=== PATIENT | female | born 1975 | race Caucasian/White ===

== ENCOUNTER → 2016-12-13 | Outpatient (REF) | payer OTHER | LOC: M LAB REF 15:45 | PROVIDERS: ATTEND Surgery | DX: D22.5 Melanocytic nevi of trunk (principal) ==

== ENCOUNTER → 2017-09-21 | Outpatient (CLI) | payer OTHER ==
[2017-09-21 08:18] LABS: HEMATOCRIT 37.7 % (36.0-47.0); HEMOGLOBIN 12.7 g/dl (12.0-16.0); MEAN CORPUSCULAR HEMOGLOBIN 32.1 pg (27.0-33.0); MEAN CORPUSCULAR HGB CONC 33.7 g/dl (32.0-36.5); MEAN CORPUSCULAR VOLUME 95.2 fl (80.0-96.0); PLATELET COUNT, AUTOMATED 165 10^3/uL (150-450); RED BLOOD COUNT 3.96 10^6/uL (4.00-5.40); RED CELL DISTRIBUTION WIDTH 11.6 % (11.5-14.5); WHITE BLOOD COUNT 3.8 10^3/uL (4.0-10.0)
[2017-09-21 09:14] LABS: ALBUMIN 3.8 GM/DL (3.2-5.2); ALBUMIN/GLOBULIN RATIO 1.15 (1.00-1.93); ALKALINE PHOSPHATASE 68 U/L (45-117); ALT/SGPT 24 U/L (12-78); ANION GAP 6 MEQ/L (8-16); AST/SGOT 13 U/L (7-37); BILIRUBIN,TOTAL 0.5 MG/DL (0.2-1.0); BLOOD UREA NITROGEN 17 MG/DL (7-18); CALCIUM LEVEL 8.8 MG/DL (8.5-10.1); CARBON DIOXIDE LEVEL 29 MEQ/L (21-32); CHLORIDE LEVEL 106 MEQ/L (98-107); CREATININE FOR GFR 0.72 MG/DL (0.55-1.30); GLOMERULAR FILTRATION RATE > 60.0 (>58); GLUCOSE, FASTING 97 MG/DL (70-100); HCG, SERUM QUANTITATIVE < 1.0 MIU/ML; POTASSIUM SERUM 4.3 MEQ/L (3.5-5.1); SODIUM LEVEL 141 MEQ/L (136-145); TOTAL PROTEIN 7.1 GM/DL (6.4-8.2)
[2017-09-21 12:22] LABS: PROGESTERONE 0.3 NG/ML; TESTOSTERONE 18 NG/DL (14-76)
[2017-09-21 12:23] LABS: ESTRADIOL 25.8 PG/ML; FOLLICLE STIMULATING HORMONE 10.2 mIU/mL; PROLACTIN 4.8 NG/ML
[2017-09-22 10:19] LABS: RUBELLA IgG QUALITATIVE IMMUNE (IMMUNE)
[2017-09-22 10:20] LABS: HEPATITIS B SURFACE ANTIGEN NEGATIVE (NEGATIVE)
[2017-09-22 10:48] LABS: HEPATITIS C VIRUS ABY INDEX < 0.0 INDEX (<0.8)
[2017-09-22 10:49] LABS: HIV 1&2 SCREEN CENTAUR NEGATIVE (NEGATIVE)
== END ==
LOC: M LAB 07:26
DX: E28.9 Ovarian dysfunction, unspecified (principal)
CPT/HCPCS: 83001

== ENCOUNTER → 2018-11-09 | Outpatient (CLI) | payer OTHER ==
[2018-11-09 07:37] LABS: THYROID STIMULATING HORMONE 0.049 uIU/ML (0.358-3.740)
[2018-11-09 09:40] LABS: ESTRADIOL 107.4 PG/ML; PROGESTERONE 27.16 NG/ML
== END ==
LOC: M LAB 06:45
PROVIDERS: ATTEND Obstetrics & Gynecology Reproductive Endocrinology
DX: E28.9 Ovarian dysfunction, unspecified (principal)

== ENCOUNTER → 2019-03-28 | Outpatient (CLI) | payer OTHER ==
[2019-03-28 12:21] LABS: ESTRADIOL 185.8 PG/ML; PROGESTERONE 15.55 NG/ML
[2019-03-28 13:14] LABS: THYROID STIMULATING HORMONE 1.67 uIU/ML (0.358-3.740)
== END ==
LOC: M LAB 06:36
PROVIDERS: ATTEND Obstetrics & Gynecology Reproductive Endocrinology
DX: E28.9 Ovarian dysfunction, unspecified (principal)

== ENCOUNTER → 2019-04-04 | Outpatient (CLI) | payer OTHER ==
[2019-04-04 12:17] LABS: PROGESTERONE 38.48 NG/ML
== END ==
LOC: M LAB 06:34
PROVIDERS: ATTEND Obstetrics & Gynecology Reproductive Endocrinology
DX: E28.9 Ovarian dysfunction, unspecified (principal)

== ENCOUNTER 2019-04-22 12:08 | Emergency (ER) | payer OTHER ==
[~2019-04-22] VITALS: Ht 167.6 cm; Wt 65.2 kg
[2019-04-22] MEDS ORDERED: CQ 10 PO (12:37)
[2019-04-22] MEDS ORDERED: PRENTAB9 PO (12:37)
[2019-04-22 12:49] LABS: BASO % 0.4 % (0.0-1.0); EOS # 0.4 10^3/uL (0.0-0.5); EOS % 4.6 % (0.0-3.0); HEMATOCRIT 36.4 % (36.0-47.0); HEMOGLOBIN 12.3 g/dl (12.0-15.5); MEAN CORPUSCULAR HEMOGLOBIN 32.5 pg (27.0-33.0); MEAN CORPUSCULAR HGB CONC 33.8 g/dl (32.0-36.5); MEAN CORPUSCULAR VOLUME 96.3 fl (80.0-96.0); MONO # 0.6 10^3/uL (0.0-0.8); MONO % 6.2 % (0.0-5.0); NEUTROPHILS # 6.4 10^3/uL (1.5-8.5); NEUTROPHILS % 67.4 % (36.0-66.0); PLATELET COUNT, AUTOMATED 162 10^3/uL (150-450); RED BLOOD COUNT 3.78 10^6/uL (4.00-5.40); WHITE BLOOD COUNT 9.5 10^3/uL (4.0-10.0)
[2019-04-22 13:34] LABS: BLOOD UREA NITROGEN 11 MG/DL (7-18); CALCIUM LEVEL 9.2 MG/DL (8.5-10.1); CARBON DIOXIDE LEVEL 27 MEQ/L (21-32); CHLORIDE LEVEL 104 MEQ/L (98-107); CREATININE FOR GFR 0.79 MG/DL (0.55-1.30); GLOMERULAR FILTRATION RATE > 60.0 (>58); GLUCOSE, FASTING 111 MG/DL (70-100); HCG, SERUM QUANTITATIVE 3901 MIU/ML; POTASSIUM SERUM 3.4 MEQ/L (3.5-5.1); SODIUM LEVEL 138 MEQ/L (136-145)
[2019-04-22] MEDS ORDERED: PERCOCET 5MG/325MG TAB PO ONE (14:00)
[2019-04-22] MEDS ORDERED: NORC1TAB7 PO (15:37)
[2019-04-22 15:44] VITALS: BP 132/74
--- NOTE | 2019-04-23 07:42 | REP ---
FIRST TRIMESTER ULTRASOUND: Real-time sonographic evaluation of the pelvis is performed utilizing transabdominal and endovaginal technique. The uterus measures 11.2 x 4.0 x 5.2 cm. The endometrial thickness is 7 mm. In the region of the cervix, there is an oval irregular sac-like structure, which measures 49 x 12 x 15 mm. This could represent an irregular gestational sac. No internal contents are seen. Given its location and appearance, this may represent an in progress. Right ovary measures 2.4 x 1.2 x 1.6 cm and left ovary 2.6 x 1.9 x 1.9 cm. A complex cystic structure in the left ovary may represent a corpus luteum 1.7 x 1.1 x 1.6 cm. There is no evidence of ovarian torsion or free fluid. No adnexal mass is seen. IMPRESSION: Irregular sac-like structure in the cervix may represent an in progress. No viable gestation is seen. Complex cystic structure left ovary 1.7 cm may represent a corpus luteum. No torsion or free fluid or adnexal mass. Electronically Signed by Narciso Roth MD 04/24/2019 10:10 A
== END 2019-04-22 15:50 | disposition home or self-care (01) ==
LOC: M ED 12:08
DX: O03.4 Incomplete spontaneous abortion without complication (principal); Z3A.01 Less than 8 weeks gestation of pregnancy

== ENCOUNTER → 2019-10-09 | Outpatient (REF) | payer OTHER ==
[~2019-10-09] MED LIST: CQ 10 PO; NORC1TAB7 PO; PRENTAB9 PO
[2019-10-09 17:12] LABS: BASO # 0.1 10^3/uL (0.0-0.2); EOS % 0.5 % (0.0-3.0); HEMATOCRIT 30.5 % (36.0-47.0); HEMOGLOBIN 9.4 g/dl (12.0-15.5); LYMPH % 25.9 % (24.0-44.0); MEAN CORPUSCULAR HEMOGLOBIN 30.9 pg (27.0-33.0); MEAN CORPUSCULAR HGB CONC 30.8 g/dl (32.0-36.5); MEAN CORPUSCULAR VOLUME 100.3 fl (80.0-96.0); MONO # 0.7 10^3/uL (0.0-0.8); MONO % 8.8 % (0.0-5.0); NEUTROPHILS # 4.7 10^3/uL (1.5-8.5); PLATELET COUNT, AUTOMATED 734 10^3/uL (150-450); RED BLOOD COUNT 3.04 10^6/uL (4.00-5.40); WHITE BLOOD COUNT 7.7 10^3/uL (4.0-10.0)
== END ==
LOC: M SHH 16:33
PROVIDERS: ATTEND Internal Medicine
DX: J86.9 Pyothorax without fistula (principal)

== ENCOUNTER → 2019-10-14 | Outpatient (REF) | payer OTHER ==
[2019-10-14 11:54] LABS: BASO # 0.1 10^3/uL (0.0-0.2); BASO % 1.3 % (0.0-1.0); EOS # 0.1 10^3/uL (0.0-0.5); EOS % 1.3 % (0.0-3.0); HEMATOCRIT 34.4 % (36.0-47.0); LYMPH % 33.1 % (24.0-44.0); MEAN CORPUSCULAR HEMOGLOBIN 31.3 pg (27.0-33.0); MONO # 0.5 10^3/uL (0.0-0.8); MONO % 8.1 % (0.0-5.0); NEUTROPHILS # 3.3 10^3/uL (1.5-8.5); NEUTROPHILS % 55.2 % (36.0-66.0); PLATELET COUNT, AUTOMATED 503 10^3/uL (150-450); RED BLOOD COUNT 3.51 10^6/uL (4.00-5.40)
[2019-10-14 12:41] LABS: ALBUMIN 2.6 GM/DL (3.2-5.2); ALT/SGPT 33 U/L (12-78); BILIRUBIN,TOTAL 0.5 MG/DL (0.2-1.0); BLOOD UREA NITROGEN 18 MG/DL (7-18); CALCIUM LEVEL 9.8 MG/DL (8.5-10.1); CARBON DIOXIDE LEVEL 29 MEQ/L (21-32); CHLORIDE LEVEL 101 MEQ/L (98-107); CREATININE FOR GFR 0.88 MG/DL (0.55-1.30); GLOMERULAR FILTRATION RATE > 60.0 (>58); GLUCOSE, FASTING 95 MG/DL (70-100); POTASSIUM SERUM 5.2 MEQ/L (3.5-5.1); SODIUM LEVEL 135 MEQ/L (136-145); TOTAL PROTEIN 8.2 GM/DL (6.4-8.2)
== END ==
LOC: M SHH 11:26
PROVIDERS: ATTEND Internal Medicine
DX: J86.9 Pyothorax without fistula (principal)

== ENCOUNTER → 2019-10-21 | Outpatient (REF) | payer OTHER ==
[2019-10-21 17:01] LABS: BASO % 0.8 % (0.0-1.0); EOS # 0.1 10^3/uL (0.0-0.5); EOS % 2.6 % (0.0-3.0); HEMATOCRIT 33.5 % (36.0-47.0); HEMOGLOBIN 10.7 g/dl (12.0-15.5); LYMPH # 1.7 10^3/uL (1.5-5.0); LYMPH % 34.4 % (24.0-44.0); MEAN CORPUSCULAR HEMOGLOBIN 31.5 pg (27.0-33.0); MEAN CORPUSCULAR HGB CONC 31.9 g/dl (32.0-36.5); MEAN CORPUSCULAR VOLUME 98.5 fl (80.0-96.0); MONO # 0.6 10^3/uL (0.0-0.8); NEUTROPHILS # 2.5 10^3/uL (1.5-8.5); NEUTROPHILS % 50.6 % (36.0-66.0); PLATELET COUNT, AUTOMATED 224 10^3/uL (150-450)
[2019-10-21 17:13] LABS: ALBUMIN 2.9 GM/DL (3.2-5.2); ALT/SGPT 33 U/L (12-78); BILIRUBIN,TOTAL 0.3 MG/DL (0.2-1.0); BLOOD UREA NITROGEN 12 MG/DL (7-18); CALCIUM LEVEL 8.8 MG/DL (8.5-10.1); CARBON DIOXIDE LEVEL 26 MEQ/L (21-32); CHLORIDE LEVEL 103 MEQ/L (98-107); CREATININE FOR GFR 0.76 MG/DL (0.55-1.30); GLOMERULAR FILTRATION RATE > 60.0 (>58); GLUCOSE, FASTING 120 MG/DL (70-100); SODIUM LEVEL 136 MEQ/L (136-145); TOTAL PROTEIN 7.5 GM/DL (6.4-8.2)
== END ==
LOC: M SHH 16:10
PROVIDERS: ATTEND Internal Medicine
DX: J86.9 Pyothorax without fistula (principal)

== ENCOUNTER → 2020-05-21 | Outpatient (CLI) | payer OTHER ==
[2020-05-21 13:32] LABS: PROGESTERONE 43.83 NG/ML
== END ==
LOC: M LAB 06:31
PROVIDERS: ATTEND Obstetrics & Gynecology Reproductive Endocrinology
DX: Z32.00 Encounter for pregnancy test, result unknown (principal)

== ENCOUNTER → 2020-06-19 | Outpatient (CLI) | payer OTHER ==
--- NOTE | 2020-06-19 13:29 | REP ---
INDICATION: W/ HISTORY OF INF. COMPARISON: None. TECHNIQUE: Transvaginal pelvic ultrasound performed. FINDINGS: There is a single living intrauterine gestation. The estimated gestational age is 8 weeks 1 day based on a crown-rump length of 17 mm. EDC 01/28/2021. heart rate 118 beats per minute. There is no subchorionic hemorrhage. IMPRESSION: Viable intrauterine gestation with estimated gestational age 8 weeks 1 day, EDC 01/28/2021. <Electronically signed by Narciso Roth > 06/19/20 [id number]
[2020-06-19 13:30] LABS: ESTRADIOL 591.1 PG/ML; PROGESTERONE 31.63 NG/ML
== END ==
LOC: M LAB 12:10
PROVIDERS: ATTEND Obstetrics & Gynecology Reproductive Endocrinology
DX: O09.01 Supervision of pregnancy with history of infertility, first trimester (principal); Z3A.08 8 weeks gestation of pregnancy

== ENCOUNTER → 2020-07-27 | Outpatient (REF) | payer OTHER ==
[2020-07-27 14:58] LABS: HEMOGLOBIN 13.2 g/dl (12.0-15.5); MEAN CORPUSCULAR HEMOGLOBIN 31.5 pg (27.0-33.0); MEAN CORPUSCULAR VOLUME 95.5 fl (80.0-96.0); PLATELET COUNT, AUTOMATED 182 10^3/uL (150-450); RED BLOOD COUNT 4.19 10^6/uL (4.00-5.40); WHITE BLOOD COUNT 4.9 10^3/uL (4.0-10.0)
[2020-07-27 16:14] LABS: HEPATITIS C VIRUS ABY INDEX 0.1 INDEX (<0.8); HIV 1&2 SCREEN CENTAUR NEGATIVE (NEGATIVE)
== END ==
LOC: M PLALAB 10:42
PROVIDERS: ATTEND Obstetrics & Gynecology
DX: O09.529 Supervision of elderly multigravida, unspecified trimester (principal); Z3A.00 Weeks of gestation of pregnancy not specified

== ENCOUNTER → 2020-09-11 | Outpatient (CLI) | payer BC ==
--- NOTE | 2020-09-11 13:12 | REP ---
INDICATION: ANATOMY. COMPARISON: None. TECHNIQUE: Transabdominal obstetric sonography. FINDINGS: Scanning through the gravid uterus demonstrates a viable single intrauterine gestation in cephalic lie. motion is observed and heart rate is recorded at 155 beats per minute. A posterior placenta is seen, grade 1, without evidence of placenta previa. The inferior placental tip is 2.0 cm from the internal cervical os measured on transabdominal images. Closed cervical length is measured at 3.4 cm transabdominally. No extrauterine abnormality is observed. Amniotic fluid is subjectively normal. No abnormality is observed. Four-chamber heart and left and right ventricular outflow tract views are less than optimally achieved today due to position. The following additional anatomic structures are identified today and felt to be unremarkable: cranium in and intracranial contents, nuchal fold face and profile nose and lips, diaphragm, left-sided stomach, abdominal wall cord insertion, right and left kidney, urinary bladder, spine, upper and lower extremities, three-vessel cord.. Biometry chart: BPD 4.3 cm 19 weeks 1 day Head circumference 16.6 cm 19 weeks 2 days Abdominal circumference 14.7 cm 20 weeks 0 days Femur length 3.2 cm 19 weeks 6 days Humeral length 3.3 cm 21 weeks 0 days HC AC ratio normal 1.13 Cephalic index normal 0.71 Estimated weight 315 g, 0 lb 11 oz, 28th percentile for 20 weeks 1 day IMPRESSION: Viable single intrauterine gestation at 20 weeks 1 days by today's composite sonographic criteria. HORACIO by today's sonography January 28, 2021. No complication identified. Four-chamber heart and outflow tract views less than optimally achieved due to position. Somewhat low-lying posterior placenta, 2.0 cm from the internal cervical os. <Electronically signed by Deacon King > 09/11/20 [id number]
== END ==
LOC: M WHC 09:54
PROVIDERS: ATTEND Obstetrics & Gynecology
DX: O34.211 Maternal care for low transverse scar from previous cesarean delivery (principal); Z3A.20 20 weeks gestation of pregnancy

== ENCOUNTER → 2020-10-07 | Outpatient (CLI) | payer BC ==
--- NOTE | 2020-10-07 09:59 | REP ---
INDICATION: F/U ANATOMY. Established HORACIO January 28, 2021. COMPARISON: Comparison sonography 11 September 2020.. TECHNIQUE: Transabdominal obstetric sonography. FINDINGS: Scanning through the gravid uterus demonstrates a viable single intrauterine gestation in transverse, head to the maternal left lie. motion is observed and heart rate is recorded at 152 beats per minute. A low posterior placenta is seen, grade 1, extending to a distance of 2.0 cm from the internal cervical os.. Closed cervical length is measured at 3.9 cm transabdominally. No extrauterine abnormality is observed. Amniotic fluid is subjectively normal. Four-chamber heart and left and right ventricular outflow tract views are again less than optimally a see due to position. The following anatomic structures are identified today again and felt to be unremarkable: cranium, cerebellum, face and profile nose and lips, diaphragm, left-sided stomach, abdominal wall cord insertion, right and left kidney, urinary bladder, three-vessel cord.. Biometry chart: BPD 5.5 cm, 22 weeks 6 days Head circumference 20.9 cm, 23 weeks 0 days Abdominal circumference 19.5 cm, 24 weeks 1 day Femur length 4.3 cm, 24 weeks 0 days Humeral length 4.1 cm, 24 weeks 4 days HC AC ratio normal 1.07 Cephalic index normal 0.72 Estimated weight 645 g, 1 lb 6 oz, 45th percentile for 23 weeks 6 days IMPRESSION: Viable single intrauterine gestation at 23 weeks 5 days by today's composite sonographic criteria. HORACIO by today's sonography January 29, 2021. No complication identified. Expected gestational age estimate based on prior sonography is 23 weeks 6 days, HORACIO January 28, 2021. heart is still less than optimally seen due to position. Low posterior placenta. <Electronically signed by Deacon King > 10/07/20 [id number]
== END ==
LOC: M WHC 07:05
PROVIDERS: ATTEND Obstetrics & Gynecology
DX: O34.211 Maternal care for low transverse scar from previous cesarean delivery (principal); O32.2XX0 Maternal care for transverse and oblique lie, not applicable or unspecified; Z3A.23 23 weeks gestation of pregnancy; O44.42 Low lying placenta NOS or without hemorrhage, second trimester

== ENCOUNTER → 2020-11-02 | Outpatient (REF) | payer BC ==
[2020-11-02 15:29] LABS: HEMATOCRIT 31.7 % (36.0-47.0); HEMOGLOBIN 10.6 g/dl (12.0-15.5); MEAN CORPUSCULAR HEMOGLOBIN 33.5 pg (27.0-33.0); MEAN CORPUSCULAR HGB CONC 33.4 g/dl (32.0-36.5); MEAN CORPUSCULAR VOLUME 100.3 fl (80.0-96.0); PLATELET COUNT, AUTOMATED 145 10^3/uL (150-450); RED BLOOD COUNT 3.16 10^6/uL (4.00-5.40)
== END ==
LOC: M PLALAB 12:05
PROVIDERS: ATTEND Obstetrics & Gynecology
DX: Z34.90 Encounter for supervision of normal pregnancy, unspecified, unspecified trimester (principal); Z3A.00 Weeks of gestation of pregnancy not specified

== ENCOUNTER → 2020-11-18 | Outpatient (CLI) | payer BC | LOC: M LAB 07:25 | PROVIDERS: ATTEND Obstetrics & Gynecology | DX: R73.02 Impaired glucose tolerance (oral) (principal) ==

== ENCOUNTER → 2020-12-22 | Outpatient (CLI) | payer BC ==
--- NOTE | 2020-12-22 08:49 | REP ---
INDICATION: GESTATIONAL DIABETES,GROWTH COMPARISON: 10/07/2020 TECHNIQUE: Transabdominal obstetrical ultrasound with color Doppler evaluation. FINDINGS: Examination demonstrates a single live intrauterine in cephalic presentation. motion is identified by technologist. Placenta is noted posterior and grade 2 without evidence for placenta previa or abruption. Amniotic fluid volume is normal. Cervix measures 3.1 cm in length and appears closed.. Gestational age by 1st U/S 34 weeks 5 days with HORACIO 01/28/2021. Gestational age by current measurements 34 weeks 3 days with HORACIO 01/30/2021. FHR equals 132 beats per minute. BPD: 8.3 cm at 33 weeks 2 days HC: 31.3 cm at 35 weeks 1 day AC: 31.1 cm at 35 weeks 0 days FL: 6.5 cm at 33 weeks 0 days HL: 6.1 cm at 35 weeks 4 days HC/AC: 1.01 Estimated weight 2426 grams (37thpercentile). IMPRESSION: Single live intrauterine in cephalic presentation demonstrating appropriate interval growth. <Electronically signed by Yovany Johnson > 12/22/20 [id number]
== END ==
LOC: M WHC 07:49
PROVIDERS: ATTEND Obstetrics & Gynecology
DX: Z36.89 Encounter for other specified antenatal screening (principal); O24.419 Gestational diabetes mellitus in pregnancy, unspecified control; Z3A.34 34 weeks gestation of pregnancy

== ENCOUNTER → 2020-12-30 | Outpatient (REF) | payer BC | LOC: M SFHCWAGY 16:44 | PROVIDERS: ATTEND Obstetrics & Gynecology | DX: Z36.89 Encounter for other specified antenatal screening (principal); Z3A.35 35 weeks gestation of pregnancy ==

== ENCOUNTER 2021-01-08 13:41 | Outpatient (CLI) | payer BC ==
[~2021-01-08] VITALS: Ht 167.6 cm; Wt 70.5 kg
[~2021-01-08 13:41] MED LIST changes: +IRON18TA PO; +METF500T13 PO
[2021-01-08 13:55] VITALS: BP 138/87
[2021-01-08 14:21] LABS: APPEARANCE, URINE CLEAR (CLEAR); BACTERIA, URINE AUTO 2+ (NEGATIVE); BILIRUBIN, URINE AUTO NEGATIVE (NEGATIVE); BLOOD, URINE BLOOD NEGATIVE (NEGATIVE); COLOR, URINE STRAW (YELLOW); GLUCOSE, URINE (UA) AUTO NEGATIVE (NEGATIVE); KETONE, URINE AUTO NEGATIVE (NEGATIVE); LEUKOCYTE ESTERASE, URINE AUTO NEGATIVE (NEGATIVE); NITRITE, URINE AUTO NEGATIVE (NEGATIVE); PROTEIN, URINE AUTO NEGATIVE (NEGATIVE); RBC, URINE AUTO 0 /HPF (0-3); SPECIFIC GRAVITY URINE AUTO 1.004 (1.002-1.035); SQUAMOUS EPITHELIAL CELL UR AU 4 /HPF (0-6); UROBILINOGEN, URINE AUTO 0.2 mg/dL (0.0-2.0); WBC, URINE AUTO 0 /HPF (0-3)
[2021-01-08] MEDS ORDERED: ACET500P3 PO (14:21)
[2021-01-08] MEDS ORDERED: NITROFURANTOIN (MACROBID) 100 MG CAP PO ONE (15:30)
[2021-01-08] MEDS ORDERED: MACR100C43 PO (15:33)
--- NOTE | 2021-01-08 15:37 | IPNPDOC ---
Text Note Date of Service The patient was seen on 01/08/21. NOTE Outpatient 45yo HORACIO 01/28/2021. Presents @ 37w1d with complaints of contractions while working. 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 She reports the pains have subsided with rest. Pt is scheduled for repeat next . Cat I tracing UC initially Q 2-3 minutes upon arrival, now mostly irritability SVE LT, dimple, OOP UA 2+ bacteria, otherwise negative COVID (due to low level temp) negative PRophylactic coverage with macrobid due to symptoms Discharge home with instructions. VS,Fishbone, I+O VS, Fishbone, I+O Vital Signs Date Time Temp Pulse Resp B/P (MAP) Pulse Ox O2 Delivery O2 Flow Rate FiO2 01/08/21 13:55 76 138/87 (104) 01/08/21 13:53 99.6 18 Vonda Claire CNM January 08, 2021 15:37
== END 2021-01-08 15:55 | disposition home or self-care (01) ==
LOC: M LDO 13:41
PROVIDERS: ATTEND Advanced Practice Midwife
DX: O47.1 False labor at or after 37 completed weeks of gestation (principal); Z3A.37 37 weeks gestation of pregnancy; O09.523 Supervision of elderly multigravida, third trimester; O34.211 Maternal care for low transverse scar from previous cesarean delivery
CPT/HCPCS: 59025; 81001; 87086; G0378; G0463; U0002

== ENCOUNTER → 2021-01-13 | Outpatient (CLI) | payer BC ==
[~2021-01-13] MED LIST changes: +ACET500P3 PO; +MACR100C43 PO
== END ==
LOC: M LABSMTC 10:03
PROVIDERS: ATTEND Anesthesiology
DX: Z01.818 Encounter for other preprocedural examination (principal); Z11.52 Encounter for screening for COVID-19

== ENCOUNTER 2021-01-14 05:39 | Inpatient (IN) | payer BC ==
[2021-01-14] VITALS (8 sets, daily range): BP systolic 114–138; BP diastolic 65–87
[~2021-01-14] VITALS: Ht 167.6 cm; Wt 71.6 kg
[~2021-01-14 05:39] MED LIST changes: +BICITRA 30ML SOLN UDC PO ONE; +LR 1,000 ML IV ONE; +LR 1,000 ML IV SCH; +ceFAZolin SOD 2 GM in IV 1 EA IV ONE
[2021-01-14 06:34] LABS: HEMATOCRIT 37.7 % (36.0-47.0); HEMOGLOBIN 12.7 g/dl (12.0-15.5); MEAN CORPUSCULAR HEMOGLOBIN 34.4 pg (27.0-33.0); MEAN CORPUSCULAR HGB CONC 33.7 g/dl (32.0-36.5); MEAN CORPUSCULAR VOLUME 102.2 fl (80.0-96.0); PLATELET COUNT, AUTOMATED 110 10^3/uL (150-450); RED BLOOD COUNT 3.69 10^6/uL (4.00-5.40); WHITE BLOOD COUNT 3.6 10^3/uL (4.0-10.0)
[2021-01-14] MEDS ORDERED: MORPHINE PRES-FREE INJ 10 MG/10 ML VIAL (J2274) As Ordered ONE (07:17)
[2021-01-14] MEDS ORDERED: OXYTOCIN INJ 10 UNITS/ML VIAL (J2590) As Ordered ONE (07:19)
[2021-01-14] MEDS ORDERED: ONDANSETRON 4MG/2ML VIAL IV PRN ×3 (07:56→09:50)
[2021-01-14] MEDS ORDERED: NALOXONE INJ 0.4MG/1ML VIAL (J2310 PER 1MG) IV PRN ×2 (07:56)
[2021-01-14] MEDS ORDERED: NALBUPHINE HCL 10 MG/ML AMP (J2300) IV PRN (07:56)
[2021-01-14] MEDS ORDERED: METOCLOPRAMIDE INJ 10MG/2ML VIAL (J2765 PER 1) IV PRN ×2 (07:56→09:50)
[2021-01-14] MEDS ORDERED: diphenhydrAMINE 50MG/ML VIAL (J1200) IV PRN (07:56)
[2021-01-14] MEDS ORDERED: OXYTOCIN DRIP 30 UNITS in IV 1 EA IV SCH (08:05)
[2021-01-14] MEDS ORDERED: MOM 30ML SUSPENSION UDC PO PRN (08:05)
[2021-01-14] MEDS ORDERED: PERCOCET 5MG/325MG TAB PO PRN ×2 (08:05→09:50)
[2021-01-14] MEDS ORDERED: RHOGAM 300 MCG (1500 IU) INJ (J2790) IM SCH (08:05)
[2021-01-14] MEDS ORDERED: MEASLES,MUMPS,RUBELLA VACCINE INJ (MMR-II) (90707) SC SCH (08:05)
--- NOTE | 2021-01-14 08:06 | ROOPDOC ---
[facility] Report Of Operation Report of Operation DATE OF PROCEDURE: 01/14/21 SURGEON: Wilma Almonte M.D. AUTOMOTIVE QUALITY ENGINEER: Luke Cook D.O. ( essential for tissue retractions, exposure and delivery of ) PROCEDURE: Repeat section PREOPERATIVE DIAGNOSIS: 1. History of prior section 2. Gestational diabetes POSTOPERATIVE DIAGNOSIS: 1. History of prior section 2. Gestational diabetes ANESTHESIA: Spinal ESTIMATED BLOOD LOSS: 800 mL URINE OUTPUT: 350 mL INTRAVENOUS FLUIDS: 1900 mL of lactated Ringer's solution PREOPERATIVE ANTIBIOTICS:. 2 g of Ancef OPERATIVE FINDINGS: Liveborn female , Apgars 8 and 9. Weight 3050 gram or [id number]. 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 SPECIMENS: None DESCRIPTION OF PROCEDURE: After informed consent was obtained and written consent was reviewed. The patient was brought to the operating room where spinal anesthesia was placed. She was then placed in the supine position with a left l ateral tilt. Carrillo catheter was placed and to gravity. Patient was then prepped and draped in the normal sterile fashion. A timeout operating room was performed identifying the patient, procedure be performed as well as drug allergies. Anesthesia was tested and deemed to be adequate. Pfannenstiel skin incision was made and this was carried down to the underlying rectus fascia. The fascia was then scored and this incision was extended bilaterally. The fascia was then dissected off the underlying rectus muscle superiorly and inferiorly. The rectus muscles were then in the midline. The peritoneum is then entered. Extensive lysis of adhesions was performed using sharp dissection of the anterior uterus releasing from anterior peritoneum. Vesicouterine peritoneum was then tented and excised and a bladder flap was created. Oliveros retractor and bladder blade was placed. Next, a curvilinear incision was then made in the lower uterine segment. Amniotomy was performed, productive, clear fluid. The head was brought to the level of the incision atraumatically and delivered along the shoulders and corpus. The cord was clamped x2. The infant was brought over to the warmer with a good cry. Placenta was drained and delivered grossly intact. The uterus was exteriorized and then cleared of all clots and debris and the uterine incision was then closed using 0 Vicryl in a running locking fashion followed by a second layer of 0 Vicryl in a running nonlocking fashion for imbrication. Several figure 8 stitches were placed for hemostasis. The area where the adhesions were dissected on the anterior uterus was oversewn with 4-0 Vicryl. There Chula was applied over all surgical nuno hemostasis. The uterus is then returned the patient's abdomen and surgical sites reinspected and noted be hemostatic. The retractor was then removed. The anterior peritoneum was then reapproximated with 3-0 Vicryl. The rectus muscles were reapproximated 3-0 Vicryl. The fascia was then closed using 0 Vicryl in a running nonlocking fashion. The subcutaneous tissues was then irrigated and suctioned. Subcutaneous tissue was reapproximated using 3-0 Vicryl. Several subdermal stitch is placed using 3-0 Vicryl and the skin was closed with 4-0 Monocryl and subcuticular fashion. This incision was then cleaned and dried and was dressed. The patient was then taken to recovery in stable condition. All counts were correct. My surgical garment assembly supervisor Dr. Cook played in an essential role during the operation. He assisted with tissue identification retraction, delivery of the , as well as wound closure. WILMA ALMONTE MD. Jan 14, 2021 08:06
[2021-01-14] MEDS ORDERED: KETOROLAC 60MG 2ML VIAL As Ordered ONE (08:08)
[2021-01-14] MEDS ORDERED: ONDANSETRON 4MG/2ML VIAL As Ordered ONE (08:08)
[2021-01-14] MEDS ORDERED: dexameTHASONE 4 MG/ML 1ML VIAL (J1100 PER 1MG) As Ordered ONE (08:08)
[2021-01-14] MEDS ORDERED: PHENYLephrine 500MCG 5ML (100MCG/ML) SYRINGE As Ordered ONE (08:38)
[2021-01-14] MEDS: DOCUSATE SODIUM 100MG CAPSULE PO SCH ×2 (09:00→20:57)
[2021-01-14] MEDS: PRENATAL VITAMINS CHEWABLE TABLET PO SCH (09:00)
[2021-01-14] MEDS ORDERED: OXYTOCIN 30 UNITS IN 0.9% NaCl 500ML IV BAG (J2590) As Ordered ONE (09:03)
[2021-01-14] MEDS ORDERED: fentaNYL 100 MCG/2 ML INJECTION (J3010) IV PRN (09:50)
[2021-01-14] MEDS ORDERED: LR 1,000 ML IV SCH (09:50)
[2021-01-14] MEDS ORDERED: PERCOCET 5MG/325MG TAB As Ordered ONE (10:35)
[2021-01-14] MEDS: LR 1,000 ML IV SCH ×3 (10:37→23:24)
[2021-01-14] MEDS: KETOROLAC 30 MG/ML 1ML VIAL IV SCH ×2 (14:54→20:57)
[2021-01-15 02:00] VITALS: BP 109/60
[2021-01-15] MEDS: KETOROLAC 30 MG/ML 1ML VIAL IV SCH (03:07)
[2021-01-15 06:00] VITALS: BP 115/67
--- NOTE | 2021-01-15 07:22 | IPNPDOC ---
Progress Note Date of Service: Jan 15, 2021 Day#: 1 Progress Note SUBJECT: Status post RLTCS She has been ambulating, voiding spontaneously without issue and tolerating regular diet. Lochia decreasing/minimal. Pain is well-controlled. Incision bandage is clean/unsaturated. Denies headache, visual changes, right upper quadrant pain, shortness of breath or chest pain. OBJECTIVE: VITAL SIGNS: Within normal limits, afebrile. Alert and oriented times three. Abdomen: Fundus firm at U-2. Soft, NTTP. Incision bandage not soaked through ASSESSMENT: Status post uncomplicated RLTCS. Vitals within normal limits, afebrile, hemodynamically stable with no evidence of infection. PLAN: Discharge to home tomorrow Routine /postoperative advancement Postoperative instructions/precautions reviewed. Routine PP visit at 2 and 6 weeks in clinic. VS, I&O, 24H, Fishbone Vital Signs/I&O Vital Signs Date Time Temp Pulse Resp B/P (MAP) Pulse Ox O2 Delivery O2 Flow Rate FiO2 01/15/21 06:00 98.3 68 16 115/67 (83) 98 Room Air I&O- Last 24 Hours up to 6 AM 01/15/21 06:00 Intake Total 3705 ml Output Total 2050 ml Balance 1655 ml Laboratory Data 24H LABS Laboratory Tests 2 01/14/21 07:25: Bedside Glucose (Misc Panel) 61L 01/14/21 09:51: Bedside Glucose (Misc Panel) 74 ANITA XIE DO Jan 15, 2021 07:22
[2021-01-15 07:42] LABS: HEMATOCRIT 26.8 % (36.0-47.0); MEAN CORPUSCULAR HEMOGLOBIN 34.4 pg (27.0-33.0); MEAN CORPUSCULAR HGB CONC 33.6 g/dl (32.0-36.5); MEAN CORPUSCULAR VOLUME 102.3 fl (80.0-96.0); RED BLOOD COUNT 2.62 10^6/uL (4.00-5.40); WHITE BLOOD COUNT 5.8 10^3/uL (4.0-10.0)
[2021-01-15 07:54] LABS: PLATELET COUNT, AUTOMATED 98 10^3/uL (150-450)
[2021-01-15] MEDS: PRENATAL VITAMINS CHEWABLE TABLET PO SCH (07:58)
[2021-01-15] MEDS: SIMETHICONE 80MG CHEW TAB PO PRN ×2 (07:58→17:24)
[2021-01-15] MEDS: PERCOCET 5MG/325MG TAB PO PRN ×3 (07:59→23:51)
[2021-01-15] MEDS: DOCUSATE SODIUM 100MG CAPSULE PO SCH ×2 (07:59→21:25)
[2021-01-15] MEDS: LR 1,000 ML IV SCH (08:05)
[2021-01-15 10:00] VITALS: BP 131/80
[2021-01-15] MEDS: IBUPROFEN 800 MG TAB PO SCH ×2 (12:50→19:46)
[2021-01-15 14:00] VITALS: BP 127/78
[2021-01-15 18:00] VITALS: BP 131/79
[2021-01-15 22:00] VITALS: BP 122/66
[2021-01-16 02:00] VITALS: BP 109/56
[2021-01-16] MEDS: IBUPROFEN 800 MG TAB PO SCH ×2 (03:36→10:47)
[2021-01-16] MEDS: PERCOCET 5MG/325MG TAB PO PRN (05:53)
[2021-01-16 06:00] VITALS: BP 111/61
--- NOTE | 2021-01-16 07:22 | DS.PDOC ---
Discharge Summary General Date of Admission Jan 14, 2021 at 05:39 Date of Discharge January 16, 2021 Discharge Summary PROCEDURES PERFORMED DURING STAY: Repeat section ADMITTING DIAGNOSES: 1. A2GDM at 38wks 2. Prior section 3. AMA DISCHARGE DIAGNOSES: 1. Repeat section COMPLICATIONS/CHIEF COMPLAINT: Advance Maternal Age, Previous Section. HISTORY OF PRESENT ILLNESS: 45yo G2 now P2 admitted 01/14 for repeat section HOSPITAL COURSE: Ambulating. Reports adequate pain management. Voiding and passing flatus DISCHARGE MEDICATIONS: Please see below. ALLERGIES: Please see below. PHYSICAL EXAMINATION ON DISCHARGE: VITAL SIGNS: Please see below. GENERAL: No complaints HEENT: WNL NECK: Supple CARDIOVASCULAR EXAMINATION: HRR, normotensive RESPIRATORY EXAMINATION: Clear and unlabored ABDOMINAL EXAMINATION: Fundus firm. Dressing intact EXTREMITIES: Equal strength and motion SKIN: Intact NEUROLOGICAL EXAMINATION: Grossly intact PSYCHIATRIC EXAMINATION: Appropriate LABORATORY DATA: Please see below. PROGNOSIS: Good ACTIVITY: As tolerated DIET: As tolerated DISCHARGE PLAN: Home today with family DISPOSITION: Home DISCHARGE INSTRUCTIONS: 1. Pelvic rest. Remove dressing day 5. Call with fever, nausea, vomiting chills, foul lochia, wound exudate or any concern. Return to office 2 wks and 6 wks DISCHARGE CONDITION: Stable TIME SPENT ON DISCHARGE: Greater than 10 minutes. Vital Signs/I&Os Vital Signs Date Time Temp Pulse Resp B/P (MAP) Pulse Ox O2 Delivery O2 Flow Rate FiO2 01/16/21 06:25 18 Room Air 01/16/21 06:00 97.8 69 111/61 (78) 100 Discharge Medications Scheduled Iron (Iron) 18 Mg Tablet, 65 MG PO BID, (Reported) Metformin HCl (Metformin HCl) 500 Mg Tablet, 500 MG PO BID, (Reported) No.137/Iron/Folic Acd ( Vitamin Tablet) 1 Each Tablet, 1 TAB PO DAILY, (Reported) Allergies Coded Allergies: No Known Allergies (Unverified , 01/07/21) Vonda Claire CNM Jan 16, 2021 07:22
[2021-01-16] MEDS ORDERED: PERCOCET PO (07:25)
[2021-01-16] MEDS ORDERED: IBUP80TA PO (07:25)
[2021-01-16] MEDS: DOCUSATE SODIUM 100MG CAPSULE PO SCH (08:15)
[2021-01-16] MEDS: PRENATAL VITAMINS CHEWABLE TABLET PO SCH (08:16)
== END 2021-01-16 11:15 | disposition home or self-care (01) | DRG 540 ==
LOC: M LDI 05:39 → M OBS 11:00
PROVIDERS: ADMIT Obstetrics & Gynecology; ATTEND Obstetrics & Gynecology
PROC: 10D00Z1 Extraction of Products of Conception, Low, Open Approach (ICD-10-PCS; principal; 2021-01-14 07:30)
DX: O34.211 Maternal care for low transverse scar from previous cesarean delivery (principal); O24.425 Gestational diabetes mellitus in childbirth, controlled by oral hypoglycemic drugs; Z37.0 Single live birth; Z3A.38 38 weeks gestation of pregnancy

== ENCOUNTER → 2021-05-31 | Outpatient (CLI) | payer BC ==
[~2021-05-31] MED LIST changes: -BICITRA 30ML SOLN UDC PO ONE; +IBUP80TA PO; -LR 1,000 ML IV ONE; -LR 1,000 ML IV SCH; +PERCOCET PO; -ceFAZolin SOD 2 GM in IV 1 EA IV ONE
[2021-05-31 11:55] LABS: PROGESTERONE 56.21 NG/ML
== END ==
LOC: M LAB 09:48
PROVIDERS: ATTEND Obstetrics & Gynecology Reproductive Endocrinology
DX: Z32.00 Encounter for pregnancy test, result unknown (principal)

== ENCOUNTER → 2021-06-03 | Outpatient (CLI) | payer BC ==
[2021-06-03 15:44] LABS: ESTRADIOL 335.7 PG/ML; PROGESTERONE 49.25 NG/ML; THYROID STIMULATING HORMONE 1.38 uIU/ML (0.358-3.740)
== END ==
LOC: M LAB 13:19
PROVIDERS: ATTEND Obstetrics & Gynecology Reproductive Endocrinology
DX: Z32.01 Encounter for pregnancy test, result positive (principal)

== ENCOUNTER → 2021-06-12 | Outpatient (CLI) | payer BC | LOC: M LAB 09:20 | PROVIDERS: ATTEND Obstetrics & Gynecology Reproductive Endocrinology | DX: Z32.01 Encounter for pregnancy test, result positive (principal) ==

== ENCOUNTER → 2021-06-15 | Outpatient (CLI) | payer BC ==
[2021-06-15 16:35] LABS: HCG, SERUM QUANTITATIVE 601 MIU/ML
[2021-06-15 16:44] LABS: ESTRADIOL < 19.0 PG/ML; PROGESTERONE 1.98 NG/ML
--- NOTE | 2021-06-15 17:02 | REP ---
INDICATION: PREG WITH HX OF INFERTILITY. COMPARISON: None. TECHNIQUE: Transvaginal imaging only was ordered and performed. FINDINGS: The uterus measures 10.7 x 4.4 by 6.3 cm. The endometrial echo complex is poorly visualized. There is no intrauterine gestational sac. Neither ovary was visualized. IMPRESSION: Exam is limited. There is no evidence of an intrauterine . Since neither ovary was visualized an ectopic cannot be ruled out by this exam. <Electronically signed by Francesco Newton > 06/15/21 [id number]
== END ==
LOC: M RAD 15:28
PROVIDERS: ATTEND Obstetrics & Gynecology Reproductive Endocrinology
DX: O09.00 Supervision of pregnancy with history of infertility, unspecified trimester (principal)